=== PATIENT | female | born 1990 ===

== ENCOUNTER 2017-04-24 20:41 | Emergency (ER) | payer SELFPAY ==
[2017-04-24 20:58] VITALS: BMI 27.8
[2017-04-24 21:01] VITALS: TEMP 98.3
--- NOTE | 2017-04-24 21:50 | ED PDOC ---
Arrival/HPI - General Chief Complaint: Abdominal Pain Time Seen by Provider: 04/24/17 21:19 Historian: Patient - History of Present Illness Narrative History of Present Illness (Text): 04/24/17 21:47 Ann Sibley is a 26 year old, G1:P0 female, with no significant past medical history, presents to the emergency department complaining of epigastric abdominal pain since yesterday. States that pain radiates to lower abdomen, and reports that symptoms are associated with nausea. Patient states she is approximately 10 weeks , and does not have any care yet. Denies any vaginal bleeding or discharge. Denies any urinary symptoms or any other complaints at this time. Time/Duration: Other (yesterday ) Symptom Onset: Gradual Severity Level: Mild Activities at Onset: Light Past Medical History - Provider Review Nursing Documentation Reviewed: Yes - Infectious Disease Hx of Infectious Diseases: None - Psychiatric Hx Substance Use: No - Anesthesia Hx Anesthesia: No Family/Social History - Physician Review Nursing Documentation Reviewed: Yes Family/Social History: No Known Family HX Smoking Status: Never Smoked Hx Alcohol Use: No Hx Substance Use: No Allergies/Home Meds Allergies/Adverse Reactions: Allergies No Known Allergies Allergy (Verified 04/24/17 20:58) Home Medications: Home Meds Medication Instructions Recorded Confirmed No Known Home Med 04/24/17 04/24/17 Review of Systems - Physician Review All systems were reviewed & negative as marked: Yes - Review of Systems Constitutional: Normal. absent: Fatigue, Fevers Respiratory: Normal. absent: SOB, Cough, Sputum Cardiovascular: Normal. absent: Chest Pain, Palpitations Gastrointestinal: Abdominal Pain, Nausea. absent: Diarrhea, Vomiting Genitourinary Female: Normal Neurological: Normal. absent: Headache, Dizziness Physical Exam Vital Signs Reviewed: Yes Vital Signs Temp Pulse Resp BP Pulse Ox 04/25/17 00:45 74 17 108/74 99 04/24/17 23:00 76 18 105/70 99 04/24/17 21:00 98.3 F 78 18 101/64 95 Temperature: Afebrile Blood Pressure: Normal Pulse: Regular Respiratory Rate: Normal Appearance: Positive for: Well-Appearing, Non-Toxic, Comfortable Pain Distress: None Mental Status: Positive for: Alert and Oriented X 3 - Systems Exam Head: Present: Atraumatic, Normocephalic Pupils: Present: PERRL Extroacular Muscles: Present: EOMI Conjunctiva: Present: Normal Mouth: Present: Moist Mucous Membranes Neck: Present: Normal Range of Motion Respiratory/Chest: Present: Clear to Auscultation, Good Air Exchange. No: Respiratory Distress, Accessory Muscle Use Cardiovascular: Present: Regular Rate and Rhythm, Normal S1, S2. No: Murmurs Abdomen: Present: Normal Bowel Sounds. No: Tenderness, Distention, Peritoneal Signs, Rebound, Guarding Upper Extremity: Present: Normal Inspection. No: Cyanosis, Edema Lower Extremity: Present: Normal Inspection. No: Edema Neurological: Present: GCS=15, CN II-XII Intact, Speech Normal, Motor Func Grossly Intact, Normal Sensory Function Skin: Present: Warm, Dry, Normal Color. No: Rashes Psychiatric: Present: Alert, Oriented x 3, Normal Insight, Normal Concentration Medical Decision Making ED Course and Treatment: 04/24/17 21:51 Impression:A 26 year old female who presents to the emergency department complaining of abdominal pain since yesterday. Plan: -- Labs -- HCG -- US gall blader -- US transvaginal -- Reassess and disposition Progress Notes: 04/24/17 23:58 US shows single live intrauterine gestation. Gestational age 9w5d with HR of 172 bpm. 04/25/17 01:19 On re-evaluation, patient feels better and is in no acute distress. I have discussed the results and plan with the patient, who expresses understanding. Patient in agreement with plan to be discharged home. Patient is stable for discharge. Patient was instructed to follow up with physician or return if symptoms worsen or new concerning symptoms arise. - Lab Interpretations Lab Results: 04/24/17 22:00 04/24/17 22:00 Lab Results 04/24/17 22:00: Urine Color Yellow, Urine Appearance Sl cloudy, Urine pH 6.0, Ur Specific [place] >= 1.030, Urine Protein 30 H, Urine Glucose (UA) Negative, Urine Ketones 40 H, Urine Blood Small H, Urine Nitrate Negative, Urine Bilirubin Negative, Urine Urobilinogen 1.0 H, Ur Leukocyte Esterase Negative, Urine RBC Pending, Urine WBC Pending 04/24/17 22:00: Urine HCG, Qual Positive 04/24/17 22:00: Beta HCG, Quant [id number] H 04/24/17 22:00: Sodium 135, Potassium 3.8, Chloride 102, Carbon Dioxide 21, Anion Gap 16, BUN 9, Creatinine 0.6, Est GFR ( Amer) > 60, Est GFR (Non- Af Amer) > 60, Random Glucose 77, Calcium 9.3, Total Bilirubin 0.5, AST 38, ALT 22, Alkaline Phosphatase 79, Total Protein 8.1, Albumin 4.3, Globulin 3.8, Albumin/Globulin Ratio 1.1 04/24/17 22:00: PT 10.4, INR 0.96, APTT 28.9 04/24/17 22:00: WBC 8.9, RBC 4.57, Hgb 13.2, Hct 37.5, MCV 82.1, MCH 28.9, MCHC 35.2, RDW 13.0, Plt Count 290, MPV 9.3, Gran % 78.0 H, Lymph % (Auto) 13.8 L, [place] % (Auto) 7.7 H, Eos % (Auto) 0.3 L, Baso % (Auto) 0.2, Gran # 6.91 H, Lymph # 1.2, [place] # 0.7 H, Eos # 0.0, Baso # 0.02 I have reviewed the lab results: Yes - RAD Interpretation Narrative RAD Interpretations (Text): Transvaginal Ultrasound FINDINGS: Gestation: Single live intrauterine gestation. heart rate of 172 beats per minute. [place]-rump length of 2.90 cm, correlating with gestational age of 9 weeks 5 days. Uterus/cervix: No subchorionic hemorrhage. Closed cervix, 2.6 cm in length. Ovaries: Normal ovaries. No adnexal masses. Free fluid: No significant free fluid. IMPRESSION: 1. Single live intrauterine gestation. 2. Incidental/non-acute findings are described above. Dictated and Authenticated by: Stephon Nino MD 04/25/17 00:03 US Abdomen Limited, Right Upper Quadrant FINDINGS: Liver: Normal echogenicity. No mass. No intrahepatic bile duct dilatation. Gallbladder: No gallstones. No wall thickening. No pericholecystic fluid. No sonographic Manuel's sign. Common bile duct: No dilatation. No stones. Pancreas: Unremarkable as visualized. Right kidney: Normal echogenicity. No hydronephrosis. IMPRESSION: 1. No acute findings. 2. Non-acute findings are described above. Dictated and Authenticated by: Stephon Nino MD Radiology Orders: 04/24/17 21:42 OB TRANSVAGINAL [US] Stat 04/24/17 21:43 GALL BLADDER [US] Stat Contact Center Representative: Radiologist - Scribe Statement The provider has reviewed the documentation as recorded by the Scribe Marylou Castro Provider Attestation: Provider Scribe Attestation: All medical record entries made by the Scribe were at my direction and personally dictated by me. I have reviewed the chart and agree that the record accurately reflects my personal performance of the history, physical exam, medical decision making, and the department course for this patient. I have also personally directed, reviewed, and agree with the discharge instructions and disposition. Disposition/Present on Arrival - Present on Arrival Any Indicators Present on Arrival: No History of DVT/PE: No History of Uncontrolled Diabetes: No Urinary Catheter: No History of Decub. Ulcer: No History Surgical Site Infection Following: None - Disposition Have Diagnosis and Disposition been Completed?: Yes Diagnosis: , Abdominal pain Disposition: HOME/ ROUTINE Disposition Time: 01:15 Patient Problems: Current Active Problems Problem Status Onset Abdominal pain Acute Acute Condition: GOOD Discharge Instructions (ExitCare): (ED), Acute Abdominal Pain (ED) Referrals: Peggy Walker DO [Primary Care Provider] - Follow up with primary Forms: [employer] (Croatian)
[2017-04-24 22:08] LABS: BASO # 0.02 K/mm3 (0.0-2.0); BASO % 0.2 % (0.0-3.0); EOS % 0.3 % (1.5-5.0); GRAN # 6.91 (1.4-6.5); HEMOGLOBIN 13.2 gm/dL (12.0-16.0); LYMPH # 1.2 (1.2-3.4); LYMPH % 13.8 % (22.0-35.0); MEAN CELL VOLUME 82.1 fL (80.0-105.0); MEAN CORPUSCULAR HEMOGLOBIN 28.9 pg (25.0-35.0); MEAN CORPUSCULAR HGB CONC 35.2 g/dl (31.0-37.0); MEAN PLATELET VOLUME 9.3 fl (7.0-11.0); MONO # 0.7 (0.1-0.6); MONO % 7.7 % (1.0-6.0); PLATELET COUNT 290 10^3/uL (120.0-450.0); RBC 4.57 10^6/uL (3.5-6.1); WHITE BLOOD COUNT 8.9 10^3/ul (4.5-11.0)
[2017-04-24 22:20] LABS: ALB/GLOB RATIO 1.1 (1.1-1.8); ALBUMIN 4.3 g/dL (3.0-4.8); ALT/SGPT 22 U/L (7-56); AST/SGOT 38 U/L (15-39); BLOOD UREA NITROGEN 9 mg/dL (7-21); CALCIUM 9.3 mg/dL (8.4-10.5); GFR AFRICAN-AMERICAN > 60; GFR NON-AFRICAN AMERICAN > 60
[2017-04-24 22:23] LABS: INR 0.96 (0.93-1.08); PARTIAL THROMBOPLASTIN TIME 28.9 Seconds (23.7-30.8); PROTHROMBIN TIME 10.4 Seconds (9.9-11.8)
--- NOTE | 2017-04-24 23:56 | US ---
EXAM: US First Trimester, Transabdominal CLINICAL HISTORY: 26 years old, female; Pain; Other: Pelvic; Gestational age or lmp: 02/12/2017; ; Additional info: Abd pain TECHNIQUE: Real-time transabdominal obstetrical ultrasound of the maternal pelvis and a first trimester with image documentation. COMPARISON: No relevant prior studies available. FINDINGS: Gestation: Single live intrauterine gestation. heart rate of 172 beats per minute. [place]-rump length of 2.90 cm, correlating with gestational age of 9 weeks 5 days. Uterus/cervix: No subchorionic hemorrhage. Closed cervix, 2.6 cm in length. Ovaries: Normal ovaries. No adnexal masses. Free fluid: No significant free fluid. IMPRESSION: 1. Single live intrauterine gestation. 2. Incidental/non-acute findings are described above. EXAM: US , Transvaginal CLINICAL HISTORY: 26 years old, female; Pain; Other: Pelvic; Gestational age or lmp: 02/12/2017; ; Additional info: Abd pain TECHNIQUE: Real-time transvaginal obstetrical ultrasound of the maternal pelvis and a first trimester with image documentation. Transvaginal imaging was used for better evaluation of the fetus and adnexa. COMPARISON: No relevant prior studies available. FINDINGS: Gestation: Single live intrauterine gestation. heart rate of 172 beats per minute. [place]-rump length of 2.90 cm, correlating with gestational age of 9 weeks 5 days. Uterus/cervix: No subchorionic hemorrhage. Closed cervix, 2.6 cm in length. Ovaries: Normal ovaries. No adnexal masses. Free fluid: No significant free fluid.
--- NOTE | 2017-04-24 23:57 | US ---
EXAM: US Abdomen Limited, Right Upper Quadrant CLINICAL HISTORY: 26 years old, female; Pain; Abdominal pain; Epigastric; ; Additional info: Ruq pain TECHNIQUE: Real-time ultrasound of the right upper quadrant with image documentation. COMPARISON: No relevant prior studies available. FINDINGS: Liver: Normal echogenicity. No mass. No intrahepatic bile duct dilatation. Gallbladder: No gallstones. No wall thickening. No pericholecystic fluid. No sonographic Manuel's sign. Common bile duct: No dilatation. No stones. Pancreas: Unremarkable as visualized. Right kidney: Normal echogenicity. No hydronephrosis. IMPRESSION: 1.No acute findings. 2.Non-acute findings are described above.
[2017-04-25 00:45] VITALS: RESP 17
[2017-04-25 01:08] LABS: URINE BILIRUBIN NEGATIVE (NEGATIVE); URINE BLOOD SMALL (NEGATIVE); URINE GLUCOSE (UA) NEGATIVE (NEGATIVE); URINE LEUKOCYTE ESTERASE NEGATIVE Leu/uL (NEGATIVE); URINE NITRATE NEGATIVE (NEGATIVE); URINE PROTEIN 30 mg/dL (<30 mg/dL)
[2017-04-25 01:12] LABS: URINE APPEARANCE SL CLOUDY (CLEAR); URINE COLOR YELLOW (YELLOW)
[2017-04-25 01:21] LABS: URINE RBC 0 - 2 /hpf (0-2)
[2017-04-25 01:22] LABS: URINE BACTERIA FEW (NEG)
[2017-04-25 01:25] VITALS: BP 110/76; PULSE 71; O2SAT 100
== END 2017-04-25 01:25 | disposition home or self-care (01) ==
LOC: ED 20:41 → MERGE 20:41 → ED 04-25 01:25
DX: O26.891 Other specified pregnancy related conditions, first trimester (principal); R10.9 Unspecified abdominal pain; Z3A.09 9 weeks gestation of pregnancy